=== PATIENT | male | born 1980 | race Caucasian/White ===

== ENCOUNTER → 2021-07-21 13:59 | Outpatient (CLI) | payer SELFPAY, OTHER ==
--- NOTE | 2021-07-21 14:10 | RAD_ITS ---
STUDY: X-RAY - LEFT WRIST REASON FOR EXAM: Male, 40 years old. WRIST PAIN TECHNIQUE: 3 view(s) of the wrist were obtained. COMPARISON: None. FINDINGS: Normal visualized distal radius and ulna. Normal radiocarpal articulation. Normal distal radioulnar articulation. Normal carpal bones. Normal carpal articulations. Normal carpometacarpal articulation of the thumb. Normal second through fifth carpometacarpal articulations. Normal visualized metacarpal bones. The soft tissue structures are unremarkable. RAD/Wrist min 3 Views IMPRESSION: Normal x-ray examination of the wrist. Electronically Signed: Blayne Horner MD at 15:03 EDT , Service support ,
--- NOTE | 2021-07-21 14:11 | RAD_ITS ---
STUDY: X-RAY - RIGHT FOOT CLINICAL: Male, 40 years old. FOOT PAIN TECHNIQUE: 3 view(s) of the foot. COMPARISON: None. FINDINGS: Normal talus, calcaneus, and tarsal bones. Normal visualized subtalar, talonavicular, calcaneocuboid, tarsal and tarsometatarsal articulations. Normal metatarsi. There is slight degenerative arthrosis of the metatarsophalangeal joint of the hallux . Normal tibial and fibular sesamoid bones. Normal interphalangeal joint of the great toe. Normal phalanges of the great toe. Normal second through fifth metatarsophalangeal joints. Normal interphalangeal joints and phalanges of the lesser toes. Small punctate radiodensities likely related to clothing artifact. RAD/Foot min 3 Views IMPRESSION: Slight MTP joint arthrosis. Electronically Signed: Jeff Patel MD ([facility]) at 6:50 EDT , Service support ,
--- NOTE | 2021-07-21 14:11 | RAD_ITS ---
STUDY: X-RAY - LEFT FOOT CLINICAL: Male, 40 years old. Plantar foot pain. TECHNIQUE: 3 view(s) of the foot. COMPARISON: None. FINDINGS: Normal talus, calcaneus, and tarsal bones. Normal visualized subtalar, talonavicular, calcaneocuboid, tarsal and tarsometatarsal articulations. Normal metatarsi. Normal metatarsophalangeal joint of the great toe. Normal tibial and fibular sesamoid bones. Normal interphalangeal joint of the great toe. Normal phalanges of the great toe. Normal second through fifth metatarsophalangeal joints. Normal interphalangeal joints and phalanges of the lesser toes. The soft tissue structures are unremarkable. RAD/Foot min 3 Views IMPRESSION: Normal x-ray examination of the foot. Electronically Signed: Blayne Horner MD at 15:03 EDT , Service support ,
--- NOTE | 2021-07-21 14:15 | RAD_ITS ---
STUDY: X-RAY - RIGHT WRIST REASON FOR EXAM: Male, 40 years old. WRIST PAIN TECHNIQUE: 3 view(s) of the wrist were obtained. COMPARISON: None. FINDINGS: Normal visualized distal radius and ulna. Normal radiocarpal articulation. Normal distal radioulnar articulation. Normal carpal bones. Normal carpal articulations. Normal carpometacarpal articulation of the thumb. Normal second through fifth carpometacarpal articulations. Normal visualized metacarpal bones. The soft tissue structures are unremarkable. RAD/Wrist min 3 Views IMPRESSION: Normal x-ray examination of the wrist. Electronically Signed: Blayne Horner MD at 15:03 EDT , Service support ,
== END ==
PROVIDERS: PCP Family Medicine
DX: M25.532 Pain in left wrist (principal); M25.531 Pain in right wrist
CPT/HCPCS: 73110; 73630